=== PATIENT | male | born 1980 | race Caucasian/White ===

== ENCOUNTER 2018-11-16 08:03 | Emergency (ER) | payer OTHER ==
[~2018-11-16] VITALS: Ht 170.2 cm; Wt 77.1 kg
[2018-11-16] MEDS ORDERED: LISINOPRIL10 MG (08:06)
== END 2018-11-16 12:25 | disposition home or self-care (01) ==
LOC: ER 08:03 → EDBD 08:37 → ER 12:25
DX: R42 Dizziness and giddiness (principal)